=== PATIENT | male | born 1965 | race Caucasian/White ===

== ENCOUNTER 2018-01-27 19:37 | Emergency (ER) | payer OTHER ==
[2018-01-27 20:40] VITALS: PULSE 58; RESP 20; TEMP 98.4; O2SAT 100
[2018-01-27 20:42] VITALS: BP 160/90
[2018-01-27] MEDS ORDERED: Apap-Butalbital-Caffeine 325-50-40mg Tab PO STA (20:56)
--- NOTE | 2018-01-27 21:02 | C.PDOC ---
History Of Present Illness 52 y/o male presents to the ED complaining of recurrent headaches. He notes that 2 years ago he had brain surgery with a wire in my head and for the last 6 months has been having daily headaches. He describes it as a burning feels to his forehead. States he sees his neurologist Dr. Dykes regularly who prescribes him Fioricet, which patient takes this daily, 2-3 times. He reports the pain is the same for past 6 months. No new symptoms. Denies any visual changes, nausea, vomiting, diplopia, trauma, fever, neck stiffness, dizziness, or other associated symptoms. Patient complains he ran out of Fioricet, requesting refill. Time Seen by Provider: 01/27/18 20:45 Chief Complaint (Nursing): Headache History Per: Patient History/Exam Limitations: no limitations Onset/Duration Of Symptoms: Days Current Symptoms Are (Timing): Still Present Past Medical History Reviewed: Historical Data, Nursing Documentation, Vital Signs Vital Signs: Last Vital Signs Temp 98.4 F 01/27/18 20:31 Pulse 58 L 01/27/18 20:31 Resp 20 01/27/18 20:31 BP 160/90 H 01/27/18 20:31 Pulse Ox 100 01/27/18 20:31 - Medical History PMH: HTN, Hypercholesterolemia Denies: Chronic Kidney Disease Other Surgeries: Brain surgery 2 years ago Family History: States: Unknown Family Hx - Social History Hx Alcohol Use: No Hx Substance Use: No - Immunization History Hx Tetanus Toxoid Vaccination: No Hx Influenza Vaccination: No Review Of Systems Constitutional: Negative for: Fever Eyes: Negative for: Vision Change ENT: Negative for: Nose Congestion Cardiovascular: Negative for: Chest Pain Respiratory: Negative for: Cough, Shortness of Breath Gastrointestinal: Negative for: Nausea, Vomiting Neurological: Positive for: Headache. Negative for: Weakness, Change in Speech, Dizziness Physical Exam - Physical Exam Appears: Well, Non-toxic, No Acute Distress Skin: Warm, Dry Head: Atraumatic, Normacephalic Eye(s): bilateral: Normal Inspection (no nystagmus), PERRL, EOMI Ear(s): Bilateral: Normal Nose: Normal Oral Mucosa: Moist Neck: Normal ROM, No Midline Cervical Tenderness, No Paracervical Tenderness, Supple Lymphatic: Normal Exam Chest: Symmetrical Cardiovascular: Rhythm Regular Respiratory: Normal Breath Sounds, No Accessory Muscle Use Gastrointestinal/Abdominal: Soft, No Tenderness, No Distention Extremity: Bilateral: Atraumatic, Normal Color And Temperature, Normal ROM Neurological/Psych: Oriented x3, Normal Speech, Normal Cognition, Normal Cranial Nerves (2-12 grossly intact), No Cerebellar Signs ED Course And Treatment O2 Sat by Pulse Oximetry: 100 (RA) Pulse Ox Interpretation: Normal Progress Note: Spoke to Dr. Dykes, who agrees upon refilling Fioricet and will follow up with patient in the office. Notes no additional imaging necassary. Pt was given fiorcet in ER. Pt had same pain , no change in the last 6 months. Patient is resting comfortably, is tolerating PO, and pain has improved. Patient has no neurologic deficit, photophobia, rash, fever, or nuchal rigidity. Patient was instructed to follow up with physician/clinic in 1-2 days. Disposition Counseled Patient/Family Regarding: Diagnosis, Need For Followup, Rx Given - Disposition Referrals: Valerio Dykes MD [Staff Provider] - Disposition: HOME/ ROUTINE Disposition Time: 20:57 Condition: GOOD Additional Instructions: Vaya a cameron mdico o la clnica en 1-3 ojeda sin falta, para mas evaluacin. [place] los medicamentos niecy indicado. Volver a la mallory de emergencia en cualquier momento si los sntomas persisten o empeoran. Prescriptions: Acetaminophen/Butalbital/Caf [Fioricet] 1 tab PO BID PRN #20 tab PRN Reason: Headache Instructions: Headache, Adult (DC) Forms: [employer] (Yoruba) Print Language: SPA - POA Present On Arrival: None - Clinical Impression Clinical Impression: Headache - PA / TRAINING FACILITATOR / Resident Statement MD/DO has reviewed & agrees with the documentation as recorded. - Scribe Statement The provider has reviewed the documentation as recorded by the Scribe (Leatha Kelly) All medical record entries made by the Scribe were at my direction and personally dictated by me. I have reviewed the chart and agree that the record accurately reflects my personal performance of the history, physical exam, medical decision making, and the department course for this patient. I have also personally directed, reviewed, and agree with the discharge instructions and disposition.
[2018-01-27] MEDS ORDERED: Apap-Butalbital-Caffeine 325-50-40mg Tab ONE (21:04)
== END 2018-01-27 21:32 | disposition home or self-care (01) ==
LOC: C.ER 19:37
DX: R51 Headache (principal); E78.00 Pure hypercholesterolemia, unspecified; I10 Essential (primary) hypertension